=== PATIENT | male | born 1980 | race Two or more races ===

== ENCOUNTER 2016-04-30 17:18 | Emergency (ER) | payer SELFPAY ==
[~2016-04-30] VITALS: Ht 177.8 cm; Wt 104.3 kg
[2016-04-30 18:03] LABS: Basophils # (auto) 0 uL; Basophils % (auto) 0.4 % (0.0-2.0); Eosinophils # (auto) 0 uL; Eosinophils % (auto) 0.2 % (0.0-7.0); Hematocrit 44.7 % (41.0-53.0); Hemoglobin 14.9 g/dL (13.5-17.5); Lymphocytes # (auto) 1.3 uL; Lymphocytes % (auto) 12.5 % (10.0-50.0); Mean Corpuscular Hemoglobin 28.8 pg (28.0-32.0); Mean Corpuscular Hgb Conc. 33.4 g/dL (32.0-36.0); Mean Corpuscular Volume 86.4 fL (80.0-100.0); Mean Platelet Volume 8.4 fL (7.4-10.4); Monocytes # (auto) 0.3 uL; Monocytes % (auto) 3.2 % (0.0-12.0); Neutrophils # (auto) 8.8 uL; Neutrophils % (auto) 83.7 % (37.0-80.0); Platelet Count (auto) 293 10^3/uL (140-450); White Blood Cell 10.6 10^3/uL (4.4-10.8)
[2016-04-30 18:17] LABS: Albumin 3.9 g/dL (3.4-5.0); BUN/Creatinine Ratio 14.5; Bilirubin, Total 0.4 mg/dL (0.2-1.0); Calcium 9.2 mg/dL (8.5-10.1); Magnesium 2.3 mg/dL (1.6-2.6); Total Protein 8.1 g/dL (6.4-8.2)
[2016-04-30 18:19] LABS: Urine RBC None Seen /hpf (0 - 3)
[2016-04-30 18:33] LABS: Urine Bilirubin Negative (Negative); Urine Blood Negative /uL (Negative); Urine Color Yellow (Yellow); Urine Glucose Normal (Normal); Urine Ketone Negative (Negative); Urine Nitrite Negative (Negative); Urine Urobilinogen Normal (Negative); Urine pH 5.5 (5.0-8.0)
[2016-04-30 19:15] VITALS: BP 127/87
[2016-04-30 19:29] LABS: Uric Acid 6.3 mg/dL (3.5-7.2)
[2016-04-30] MEDS ORDERED: MECLIZINE HCL 25 MG TAB PO ONE (21:15)
== END 2016-04-30 21:31 | disposition home or self-care (01) ==
LOC: EDBD 17:18 → ER 17:24
DX: R42 Dizziness and giddiness (principal); M10.9 Gout, unspecified
CPT/HCPCS: 36415; 70450; 71010; 80053; 81001; 82150; 83735; 84484; 84550; 85025; 93005; 94761; 99285; G0434; J8597

== ENCOUNTER 2016-11-06 17:56 | Emergency (ER) | payer BC, OTHER ==
[~2016-11-06] VITALS: Ht 177.8 cm; Wt 104.3 kg
[2016-11-06 18:10] VITALS: BP 138/99
[2016-11-06] MEDS ORDERED: COLCHICINE 0.6 MG CAP PO ONE (18:30)
[2016-11-06] MEDS ORDERED: KETOROLAC TROMETH 60MG/2ML VIAL IM ONE (18:30)
== END 2016-11-06 19:12 | disposition home or self-care (01) ==
LOC: ER 17:59
DX: M10.9 Gout, unspecified (principal)
CPT/HCPCS: 96372; 99283; J1885

== ENCOUNTER 2017-01-17 03:28 | Inpatient (IN) | payer BC ==
[~2017-01-17] VITALS: Ht 177.8 cm; Wt 104.0 kg
[2017-01-17] MEDS ORDERED: cefTRIAXone SOD 1,000 MG VL IV ONE (05:45)
[2017-01-17] MEDS ORDERED: MORPHINE SULF INJ 2 MG/ML SYRINGE 1ML IV ONE (05:45)
[2017-01-17] MEDS ORDERED: ONDANSETRON ODT 4 MG TAB PO ONE (05:45)
[2017-01-17] MEDS ORDERED: cefTRIAXone 1GM/50ML D5W 50 ML IV ONE (06:15)
[2017-01-17 06:27] LABS: Basophils # (auto) 0.1 uL; Basophils % (auto) 0.6 % (0.0-2.0); Eosinophils # (auto) 0.3 uL; Eosinophils % (auto) 3.4 % (0.0-7.0); Hemoglobin 14.5 g/dL (13.5-17.5); Lymphocytes # (auto) 1.9 uL; Lymphocytes % (auto) 23.3 % (10.0-50.0); Mean Corpuscular Hemoglobin 31.1 pg (28.0-32.0); Mean Corpuscular Hgb Conc. 35.3 g/dL (32.0-36.0); Monocytes # (auto) 0.4 uL; Monocytes % (auto) 5.4 % (0.0-12.0); Neutrophils # (auto) 5.6 uL; Neutrophils % (auto) 67.3 % (37.0-80.0); Nucleated Red Blood Cells % 0.2 %; Platelet Count (auto) 228 10^3/uL (140-450); Red Blood Cells 4.66 10^6/uL (4.5-5.90); Red Cell Distribution Width 13.6 % (11.8-14.3); White Blood Cell 8.3 10^3/uL (4.4-10.8)
[2017-01-17 06:34] LABS: Urine Bacteria FEW /hpf (None Seen); Urine Blood Negative /uL (Negative); Urine Specific Gravity 1.021 (1.001-1.035); Urine WBC <1 /hpf (0 - 3)
[2017-01-17 06:41] LABS: BUN/Creatinine Ratio 20.3; Calcium 9.2 mg/dL (8.5-10.1); Potassium 3.8 mmol/L (3.5-5.1)
[2017-01-17 06:44] LABS: Bilirubin, Total 0.4 mg/dL (0.2-1.0); Total Protein 8.1 g/dL (6.4-8.2)
[2017-01-17] MEDS ORDERED: SODIUM CHLORIDE 0.9% 1,000 ML IV ONE (06:45)
[2017-01-17] MEDS ORDERED: metroNIDAZOLE 500MG/100ML 100 ML IV ONE (06:45)
[2017-01-17 07:23] LABS: INR 0.93 (0.9-1.15); Partial Thromboplastin Time 26.6 sec (22.64-33.71); Prothrombin Time 10.1 sec (9.37-12.3)
[2017-01-17] MEDS ORDERED: MORPHINE SULF INJ 2 MG/ML SYRINGE 1ML IV PRN ×2 (08:30)
[2017-01-17] MEDS ORDERED: LORazepam 2MG/ML-1ML VIAL IV PRN (08:30)
[2017-01-17] MEDS ORDERED: PROMETHAZINE HCL 25 MG/ML 1ML IV PRN (08:30)
[2017-01-17 08:52] LABS: Amylase 59 U/L (25-115); Lipase 451 U/L (73-393)
[2017-01-17] MEDS: cefTRIAXone 1GM/50ML D5W 50 ML IV SCH (09:00)
[2017-01-17] MEDS: SODIUM CHLORIDE 0.9% 1,000 ML IV SCH ×3 (09:11→21:12)
[2017-01-17] MEDS: FAMOTIDINE (10MG/ML) 2ML VL IV SCH ×2 (09:14→21:03)
[2017-01-17] MEDS: metroNIDAZOLE 500MG/100ML 100 ML IV SCH ×3 (12:00→23:46)
[2017-01-17 14:15] VITALS: BP 157/94
[2017-01-17 18:45] VITALS: BP 149/94
[2017-01-17 21:31] VITALS: BP 137/84
[2017-01-18 05:09] VITALS: BP 138/87
[2017-01-18] MEDS: metroNIDAZOLE 500MG/100ML 100 ML IV SCH ×2 (06:33→11:41)
[2017-01-18 06:54] LABS: Basophils # (auto) 0 uL; Basophils % (auto) 0.5 % (0.0-2.0); Eosinophils # (auto) 0.3 uL; Eosinophils % (auto) 5.1 % (0.0-7.0); Hematocrit 40.9 % (41.0-53.0); Hemoglobin 14.3 g/dL (13.5-17.5); Lymphocytes # (auto) 1.9 uL; Lymphocytes % (auto) 32.6 % (10.0-50.0); Mean Corpuscular Hemoglobin 30.8 pg (28.0-32.0); Mean Corpuscular Hgb Conc. 35.1 g/dL (32.0-36.0); Mean Corpuscular Volume 87.8 fL (80.0-100.0); Monocytes # (auto) 0.4 uL; Monocytes % (auto) 6.5 % (0.0-12.0); Neutrophils # (auto) 3.2 uL; Neutrophils % (auto) 55.3 % (37.0-80.0); Nucleated Red Blood Cells % 0.2 %; Platelet Count (auto) 216 10^3/uL (140-450); Red Blood Cells 4.65 10^6/uL (4.5-5.90); Red Cell Distribution Width 13.5 % (11.8-14.3); White Blood Cell 5.8 10^3/uL (4.4-10.8)
[2017-01-18 07:26] LABS: Albumin 3.6 g/dL (3.4-5.0); BUN/Creatinine Ratio 13.9; Bilirubin, Total 0.4 mg/dL (0.2-1.0); Calcium 8.7 mg/dL (8.5-10.1); Potassium 3.7 mmol/L (3.5-5.1); Total Protein 7.6 g/dL (6.4-8.2)
[2017-01-18 08:00] VITALS: BP 138/86
[2017-01-18 08:44] VITALS: BP 138/86
[2017-01-18] MEDS ORDERED: MORPHINE SULF INJ 2 MG/ML SYRINGE 1ML ONE (09:30)
[2017-01-18] MEDS: FAMOTIDINE (10MG/ML) 2ML VL IV SCH (10:33)
[2017-01-18] MEDS: cefTRIAXone 1GM/50ML D5W 50 ML IV SCH (10:33)
[2017-01-18] MEDS ORDERED: ALLO100T PO (11:42)
[2017-01-18] MEDS: SODIUM CHLORIDE 0.9% 1,000 ML IV SCH (12:45)
[2017-01-18 13:13] VITALS: BP 138/85
[2017-01-18 15:59] VITALS: BP 138/85
== END 2017-01-18 16:30 | disposition home or self-care (01) | DRG 444 ==
LOC: ER 03:28 → OVERFLOW 03:29 → EAST 11:07 → WEST WING 12:31
PROVIDERS: ADMIT Internal Medicine; ATTEND Internal Medicine
DX: K81.0 Acute cholecystitis (principal); K85.90 Acute pancreatitis without necrosis or infection, unspecified; E66.9 Obesity, unspecified; M10.9 Gout, unspecified; Y90.9 Presence of alcohol in blood, level not specified; F10.10 Alcohol abuse, uncomplicated; Z83.3 Family history of diabetes mellitus; Z68.32 Body mass index [BMI] 32.0-32.9, adult; Z82.49 Family history of ischemic heart disease and other diseases of the circulatory system; Z84.1 Family history of disorders of kidney and ureter; Z72.0 Tobacco use
CPT/HCPCS: 36415; 71010; 74176; 76705; 78226; 80053; 81001; 82150; 83690; 85025; 85610; 85730; 93005; 96365; 96366; 96367; 96375; J0696; J3490; Q0162

== ENCOUNTER 2017-08-02 11:12 | Emergency (ER) | payer SELFPAY ==
[~2017-08-02 11:12] MED LIST: ALLO100T PO
[2017-08-02 12:17] VITALS: BP 145/96
[2017-08-02] MEDS ORDERED: IBUPROFEN 800 MG TAB PO ONE (12:45)
== END 2017-08-02 13:00 | disposition home or self-care (01) ==
LOC: ER 11:12
DX: M79.641 Pain in right hand (principal)
CPT/HCPCS: 73130

== ENCOUNTER 2018-09-16 01:48 | Emergency (ER) | payer BC ==
[~2018-09-16] VITALS: Ht 175.3 cm; Wt 104.3 kg
[2018-09-16 03:14] LABS: Basophils # (auto) 0 uL; Basophils % (auto) 0.4 % (0.0-2.0); Eosinophils # (auto) 0.5 uL; Eosinophils % (auto) 4.7 % (0.0-7.0); Hematocrit 38.5 % (41.0-53.0); Hemoglobin 13.1 g/dL (13.5-17.5); Lymphocytes # (auto) 1.6 uL; Lymphocytes % (auto) 16.2 % (10.0-50.0); Mean Corpuscular Hemoglobin 29.4 pg (28.0-32.0); Mean Corpuscular Hgb Conc. 34.1 g/dL (32.0-36.0); Mean Corpuscular Volume 86.4 fL (80.0-100.0); Monocytes # (auto) 0.6 uL; Monocytes % (auto) 6.3 % (0.0-12.0); Neutrophils # (auto) 7.2 uL; Neutrophils % (auto) 72.4 % (37.0-80.0); Platelet Count (auto) 247 10^3/uL (140-450); Red Blood Cells 4.46 10^6/uL (4.5-5.90)
[2018-09-16 03:33] LABS: Albumin 3.6 g/dL (3.4-5.0); Calcium 8.5 mg/dL (8.5-10.1); Potassium 4.2 mmol/L (3.5-5.1)
[2018-09-16 03:35] LABS: BUN/Creatinine Ratio 12.2
[2018-09-16 04:18] LABS: Bilirubin, Total 0.3 mg/dL (0.2-1.0); Total Protein 7.9 g/dL (6.4-8.2)
[2018-09-16 04:23] LABS: Uric Acid 11.4 mg/dL (3.5-7.2)
[2018-09-16] MEDS ORDERED: methylPREDNISolone SOD SUCC 125 MG/2 ML VL IM ONE (06:30)
[2018-09-16] MEDS ORDERED: KETOROLAC TROMETH 60MG/2ML VIAL IM ONE (06:30)
[2018-09-16 07:19] VITALS: BP 167/107
== END 2018-09-16 07:26 | disposition home or self-care (01) ==
LOC: ER 01:56
DX: M10.041 Idiopathic gout, right hand (principal); R03.0 Elevated blood-pressure reading, without diagnosis of hypertension
CPT/HCPCS: 36415; 80053; 84550; 85025; 96372; 99283; J1885; J2930

== ENCOUNTER 2018-10-22 05:24 | Emergency (ER) | payer BC ==
[~2018-10-22] VITALS: Ht 177.8 cm; Wt 103.4 kg
[2018-10-22] MEDS ORDERED: MORPHINE SULFATE 4 MG/ML SYR/VIAL IV ONE (06:30)
[2018-10-22] MEDS ORDERED: ONDANSETRON HCL 4 MG/2 ML VIAL IV ONE (06:30)
[2018-10-22] MEDS ORDERED: SODIUM CHLORIDE 0.9% 1,000 ML IV ONE ×2 (06:30→07:08)
[2018-10-22 06:55] LABS: Albumin 3.2 g/dL (3.4-5.0); Calcium 9.1 mg/dL (8.5-10.1); Potassium 3.7 mmol/L (3.5-5.1)
[2018-10-22 06:58] LABS: Bilirubin, Total 0.4 mg/dL (0.2-1.0); Uric Acid 9.2 mg/dL (3.5-7.2)
[2018-10-22] MEDS ORDERED: DexAMETHasone SOD PHOS 4 MG/1ML SDV INJ IV ONE (07:15)
[2018-10-22] MEDS ORDERED: KETOROLAC TROMETH 15 mg/ml 1ML VL IV ONE (07:15)
[2018-10-22 07:27] LABS: Basophils # (auto) 0 uL; Basophils % (auto) 0.3 % (0.0-2.0); Eosinophils # (auto) 0.3 uL; Eosinophils % (auto) 2.9 % (0.0-7.0); Hematocrit 35.5 % (41.0-53.0); Hemoglobin 12.2 g/dL (13.5-17.5); Lymphocytes # (auto) 1.1 uL; Lymphocytes % (auto) 11.2 % (10.0-50.0); Mean Corpuscular Hemoglobin 29.5 pg (28.0-32.0); Mean Corpuscular Hgb Conc. 34.3 g/dL (32.0-36.0); Mean Corpuscular Volume 86.1 fL (80.0-100.0); Monocytes # (auto) 0.6 uL; Monocytes % (auto) 6.5 % (0.0-12.0); Neutrophils # (auto) 7.5 uL; Neutrophils % (auto) 79.1 % (37.0-80.0); Platelet Count (auto) 268 10^3/uL (140-450); Red Blood Cells 4.12 10^6/uL (4.5-5.90); Red Cell Distribution Width 13.8 % (11.8-14.3); White Blood Cell 9.4 10^3/uL (4.4-10.8)
[2018-10-22] MEDS ORDERED: KETOROLAC TROMETH 30 MG/ML 1ML VIAL ONE (08:08)
[2018-10-22 10:29] LABS: Urine Bacteria NONE SEEN /hpf (None Seen); Urine Blood TRACE /uL (Negative); Urine Mucus FEW (None Seen); Urine Specific Gravity 1.013 (1.001-1.035); Urine WBC 1 /hpf (0 - 3)
[2018-10-22 10:44] VITALS: BP 142/85
== END 2018-10-22 11:59 | disposition home or self-care (01) ==
LOC: ER 05:24
DX: M10.041 Idiopathic gout, right hand (principal); E79.0 Hyperuricemia without signs of inflammatory arthritis and tophaceous disease; E46 Unspecified protein-calorie malnutrition
CPT/HCPCS: 36415; 71045; 80053; 81001; 83735; 84550; 85025; 93005; 96374; 96375; 99284; J1100; J1885; J2270; J2405; J7030

== ENCOUNTER 2018-12-04 11:33 | Emergency (ER) | payer BC ==
[~2018-12-04] VITALS: Ht 177.8 cm; Wt 104.3 kg
[2018-12-04 12:53] LABS: Basophils # (auto) 0 uL; Basophils % (auto) 0.4 % (0.0-2.0); Eosinophils # (auto) 0.3 uL; Eosinophils % (auto) 2.6 % (0.0-7.0); Hematocrit 38.9 % (41.0-53.0); Hemoglobin 13.4 g/dL (13.5-17.5); Lymphocytes % (auto) 10.5 % (10.0-50.0); Mean Corpuscular Hemoglobin 29.4 pg (28.0-32.0); Mean Corpuscular Hgb Conc. 34.6 g/dL (32.0-36.0); Monocytes # (auto) 0.6 uL; Monocytes % (auto) 6.3 % (0.0-12.0); Neutrophils % (auto) 80.2 % (37.0-80.0); Platelet Count (auto) 242 10^3/uL (140-450); Red Blood Cells 4.57 10^6/uL (4.5-5.90); Red Cell Distribution Width 13.8 % (11.8-14.3); White Blood Cell 9.9 10^3/uL (4.4-10.8)
[2018-12-04 13:03] LABS: Albumin 3.9 g/dL (3.4-5.0); Anion Gap 8 (5-15); BUN/Creatinine Ratio 12.3; Blood Urea Nitrogen 14 mg/dL (7-18); Carbon Dioxide 26 mmol/L (21-32); Chloride 102 mmol/L (98-107); GFR African American 93 mL/min; GFR Non-African American 77 mL/min; Glucose 111 mg/dL (74-106); Potassium 3.7 mmol/L (3.5-5.1); Sodium 136 mmol/L (136-145)
[2018-12-04 13:11] LABS: Alanine Aminotransferase 22 U/L (16-61); Alkaline Phosphatase 134 U/L (45-117); Aspartate Aminotransferase 11 U/L (15-37); Bilirubin, Total 0.8 mg/dL (0.2-1.0); Total Protein 8.3 g/dL (6.4-8.2)
[2018-12-04] MEDS ORDERED: SODIUM CHLORIDE 0.9% 1,000 ML IV ONE (14:45)
[2018-12-04] MEDS ORDERED: COLCHICINE 0.6 MG CAP PO ONE (14:45)
[2018-12-04] MEDS ORDERED: KETOROLAC TROMETH 30 MG/ML 1ML VIAL IV ONE (14:45)
[2018-12-04] MEDS ORDERED: DexAMETHasone SOD PHOS 4 MG/1ML SDV INJ IV ONE (15:00)
[2018-12-04] MEDS ORDERED: ONDANSETRON HCL 4 MG/2 ML VIAL IV ONE (15:00)
[2018-12-04] MEDS ORDERED: MORPHINE SULFATE 4 MG/ML SYR/VIAL IV ONE (15:00)
[2018-12-04 15:44] VITALS: BP 130/94
== END 2018-12-04 16:31 | disposition home or self-care (01) ==
LOC: ER 11:33
DX: M10.031 Idiopathic gout, right wrist (principal)
CPT/HCPCS: 36415; 71046; 80053; 84484; 84550; 85025; 93005; 96374; 96375; 99284; J1100; J1885; J2270; J2405; J7030

== ENCOUNTER 2020-07-21 17:06 | Emergency (ER) | payer SELFPAY ==
[~2020-07-21] VITALS: Ht 177.8 cm; Wt 106.6 kg
[2020-07-21 17:06] VITALS: BP 149/99
[2020-07-21] MEDS ORDERED: KETOROLAC TROMETH 60MG/2ML VIAL IM ONE (19:15)
== END 2020-07-21 20:08 | disposition home or self-care (01) ==
LOC: ER 17:11
DX: S70.11XA Contusion of right thigh, initial encounter (principal); S50.311A Abrasion of right elbow, initial encounter; S50.312A Abrasion of left elbow, initial encounter; S80.212A Abrasion, left knee, initial encounter; M10.9 Gout, unspecified; Z79.899 Other long term (current) drug therapy; V27.4XXA Motorcycle driver injured in collision with fixed or stationary object in traffic accident, initial encounter; Y93.55 Activity, bike riding; Y92.488 Other paved roadways as the place of occurrence of the external cause; Y99.8 Other external cause status
CPT/HCPCS: 73552; 96372; 99283; J1885